=== PATIENT | female | born 1945 | race Caucasian/White ===

== ENCOUNTER 2019-11-18 22:44 | Observation (INO) | payer OTHER ==
[2019-11-18] MEDS ORDERED: SODIUM CHLORIDE 0.9% 500 ML INFUS.BAG IV ONE (23:27)
[2019-11-18] MEDS ORDERED: ACETAMINOPHEN 1000 MG/100 ML VIAL (NON FORMULARY) IVPB ONE (23:58)
--- NOTE | 2019-11-19 00:31 | PDOC ---
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 She did not take anything to relieve the pain. She also states that she has generalized weakness. Pt reports that she has had similar episodes in the past during her CVA, therefore family was concerned and brought her in. She usually follow up wit her doctors at [facility]. Denies f/c/n/v/d,sob,abdominal pain, changes in vision, numbness or tingling. 11/19/19 00:26 Associated Symptoms: reports: denies symptoms, chest pain, headaches, malaise. denies: diaphoresis, nausea/vomiting, rash, shortness of breath Past History - Travel Traveled outside of the country in the last 30 days: No Close contact w/someone who was outside of country & ill: No - Past Medical History Allergies/Adverse Reactions: Allergies Allergy/AdvReac Type Severity Reaction Status Date / Time aspirin Allergy Verified 11/18/19 23:43 Penicillins Allergy Verified 11/18/19 23:43 CVA: Yes (2018 CVA right sided weakness) COPD: No Diabetes: Yes HTN: Yes Hypercholesterolemia: Yes Seizures: Yes - Surgical History Cholecystectomy: Yes - Immunization History Immunization Up to Date: Yes - Psycho Social/Smoking Cessation Hx Smoking History: Never smoked Have you smoked in the past 12 months: No Information on smoking cessation initiated: No Hx Alcohol Use: No Drug/Substance Use Hx: No Review of Systems - Review of Systems Able to Perform ROS?: Yes Is the patient limited Burmese proficient: No Constitutional: Yes: Symptoms Reported, Weakness, Weight Stable. No: Chills, Fever, Loss of Appetite HEENTM: Yes: Symptoms Reported. No: Blurred Vision, Throat Pain Respiratory: Yes: Symptoms reported. No: Cough, Shortness of Breath, Wheezing, Productive cough Cardiac (ROS): Yes: Symptoms Reported, Chest Tightness. No: Chest Pain ( squeezing sensation ) ABD/GI: Yes: Symptoms Reported. No: Constipated, Nausea, Vomiting : Yes: Symptoms Reported. No: Burning, Dysuria Musculoskeletal: Yes: Symptoms Reported, Neck Pain Neurological: Yes: Symptoms reported, Headache, Weakness. No: Numbness, Paresthesia, Tremors All Other Systems: Reviewed and Negative *Physical Exam - Vital Signs Last Vital Signs Temp Pulse Resp BP Pulse Ox 97.9 F 68 18 151/65 95 11/18/19 23:25 11/18/19 23:25 11/18/19 23:25 11/18/19 23:25 11/18/19 23:25 - Physical Exam General Appearance: Yes: Nourished, Appropriately Dressed HEENT: positive: EOMI, ALESSANDRA, Normal ENT Inspection, Pharynx Normal. negative: Scleral Icterus (L) Neck: positive: Tender (left posterior neck), Trachea midline, Normal Thyroid, Supple Respiratory/Chest: positive: Lungs Clear, Normal Breath Sounds. negative: Crackles, Wheezing Cardiovascular: positive: Regular Rhythm, Regular Rate, S1, S2. negative: Murmur, Gallop/S3, Gallop/S4 Vascular Pulses: Dorsalis-Pedis (R): 2+, Doralis-Pedis (L): 2+ Gastrointestinal/Abdominal: positive: Normal Bowel Sounds, Soft. negative: Guarding, Tenderness Extremity: positive: Normal Capillary Refill, Normal Inspection Neurologic: positive: luggage maker II-XII NML intact (strenght 4/5 on the right UE and 5/ 5 left UE, strength 5/5 right LE and 5/5 left LE, Sensation 4/5 Left UE and LE and Sensation 5/5 right UE and LE), Fully Oriented, Alert, Normal Mood/Affect, Normal Response, Other Deep Tendon Reflexes: Ankle (L): 1+, Ankle (R): 1+, Knee (L): 1+, Knee (R): 1+ ED Treatment Course - LABORATORY CBC & Chemistry Diagram: 11/19/19 00:20 11/19/19 00:20 - RADIOLOGY Radiology Studies Ordered: Category Date Time Status HEAD CT WITHOUT CONTRAST [CT] Stat CT Scan 11/18/19 23:25 Ordered Medical Decision Making - Medical Decision Making 74 y/o F, 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
[2019-11-19 00:39] LABS: BASO % 0.7 % (0-2.0); EOS % 1.2 % (0-4.5); HEMATOCRIT 37.8 % (32.4-45.2); HEMOGLOBIN 12.5 GM/dL (10.7-15.3); MCH 30.8 pg (25.7-33.7); MCHC 33.1 g/dl (32.0-36.0); MEAN CELL VOLUME 92.8 fl (80-96); MEAN PLT VOLUME 10.5 fl (7.5-11.1); MONO % 9.8 % (3.8-10.2); NEUT % 53.3 % (42.8-82.8); PLATELET COUNT 226 K/MM3 (134-434); RBC 4.07 M/mm3 (3.60-5.2); RDW 14.9 % (11.6-15.6); WHITE BLOOD COUNT 6.5 K/mm3 (4.0-10.0)
[2019-11-19] MEDS ORDERED: ACETAMINOPHEN INJECTION 100 ML IVPB ONE (00:47)
--- NOTE | 2019-11-19 00:53 | PDOC ---
Documentation entered by Andrea Macdonald SCRIBE, acting as scribe for Janay Nathan MD. Janay Nathan MD: This documentation has been prepared by the Torres vázquez Daniel, SCRIBE, under my direction and personally reviewed by me in its entirety. I confirm that the documentation accurately reflects all work, treatment, procedures, and medical decision making performed by me. Attending Attestation - Resident Resident Name: Tera Nathan - ED Attending Attestation I have performed the following: I have examined & evaluated the patient, The case was reviewed & discussed with the resident, I agree w/resident's findings & plan, Exceptions are as noted - HPI HPI: 11/18/19 23:50 The patient is a 74 year old female with a past medical history of 2 prior strokes with residual right sided weakness here today for evaluation of bilateral frontal headaches and left neck pain. The patient reports that her bilateral headache that radiates to her neck and left sided neck pain started last night. She also reports associated general weakness and chest tightness. She reports that she hasn't taken any medications for her pain. Patient denies headache, lightheadedness. Denies fever, chills. Denies shortness of breath. Denies nausea, diarrhea, abdominal pain. Allergies: aspirin, penicillins Surgical history: cholecystectomy - Physicial Exam PE: 11/19/19 00:47 Alert and conversant 74-year-old Bulgarian-speaking female with complaint of headache that radiated to her neck She is not taking any medications for the headache since that started last evening Head normocephalic atraumatic eyes surendra eomi Neck supple, patient can turn her head both to the right and left without unusual discomfort, there is no midline cervical vertebral tenderness positive trapezius muscle tenderness lungs cta b/l cvs [id number] abd nontender skin warm and dry neuro pt follows commands,chronic rt sided arm and leg weakness,alert and oriented - Medical Decision Making 11/19/19 02:05 CAT scan shows encephalomalacia but no acute infarcts or bleeds Labs reviewed Patient has stated that she has had some chest tightness then denied it however her first troponin was 0.34 Patient will be admitted to telemetry OBS for trending of her troponin
[2019-11-19 00:58] LABS: ALBUMIN 3.3 g/dl (3.4-5.0); BILIRUBIN,TOTAL 0.4 mg/dL (0.2-1); BLOOD UREA NITROGEN 21.8 mg/dL (7-18); CALCIUM 9.6 mg/dL (8.5-10.1); CREATININE 0.9 mg/dL (0.55-1.3); POTASSIUM 3.7 mmol/L (3.5-5.1); TOT PROT 6.6 g/dl (6.4-8.2)
[2019-11-19 01:07] VITALS: BMI 29.5
--- NOTE | 2019-11-19 02:31 | PN ---
Teaching Attending Note Name of Resident: Natalie Salvador ATTENDING PHYSICIAN STATEMENT I saw and evaluated the patient. I reviewed the resident's note and discussed the case with the resident. I agree with the resident's findings and plan as documented. SUBJECTIVE: Patient is a 74 year old woman with a PMH of Penicillin allergy, Cholecystectomy and CVAx2 - most recent being last year, with residual right sided deficit, who presents to the ER with complaint of frontal headache radiating to the left posterior neck. Pain began last night and has since persisted. She did not take anything to relieve the pain. She also states that she has generalized weakness. Patient reports that she has had similar episodes in the past during her CVA, therefore family was concerned and brought her in. She usually follow up with her doctors at [facility]. Denies fever, chills , nausea, vomiting, SOB, abdominal pain, changes in vision, dysuria, diarrhea, numbness or tingling. No history of tobacco, alcohol or illicit drug use. OBJECTIVE: Alert Vital Signs Period Temp Pulse Resp BP Sys/Pollock Pulse Ox Last 24 Hr 97.9 F 68 18 151/65 95 HEENT: No Jaundice, eye redness or discharge, PERRLA, EOMI. Normocephalic, atraumatic. External ears are normal and hearing is grossly intact. No nasal discharge. Neck: Supple, nontender. No palpable adenopathy or thyromegaly. No JVD Chest: Good effort. Clear to auscultation and percussion. Heart: Regular. No S3, rub or murmur Abdomen: Not distended, soft, nontender and no HSM. No rebound or guarding. Normal bowel sounds. Ext: Peripheral pulses intact. No leg edema. Skin: Warm and dry. No petechiae, rash or ecchymosis. Neuro: Alert. Oriented to person. CN 2-12 grossly intact. Right hemiparesis. Psych: Appropriate mood and affect. Abnormal Lab Results 11/19/19 00:20 BUN 21.8 H Troponin I 0.34 H Albumin 3.3 L ASSESSMENT AND PLAN: 1. Headache/Chest pain - Etiology unclear. Noncontrast head CAT scan shows encephalomalacia but no acute infarcts or bleeds. Flu swab is negative. Troponin is elevated. EKG shows NSR with LVH, T wave inversion in aVL and flattening in V5-6 - no old EKG available for comparison. Will admit to telemetry to rule out ACS, get ECHO, CXR, fasting lipids and consult cardiology. Treat headache with tylenol. Will continue comprehensive care for all of patients comorbid conditions. 2. Hypoalbuminemia - Possibly due to combined effects of malnutrition and inflammation associated with comorbid chronic conditions. Will ensure adequate dietary protein intake and also consult director hair. 3. DVT prophylaxis - Lovenox 40 mg SQ q 24 hours. 4. Advance directives - Full code
--- NOTE | 2019-11-19 03:08 | HP ---
CHIEF COMPLAINT:headache PCP:vanessa eaton HISTORY OF PRESENT ILLNESS: 74 yo F PMH CVA x 2 presents with headache. pt states the headache began last night and is severe and sharp. pt states it radiates down her L neck. she is a poor historian and unable to provide further information. family was not at bedside. ER course was notable for: (1) CT head (2)EKG: NSR, LVH, T wave inversion in aVL and flattening in V5-6 (3)trop 0.34 Recent Travel: unable to obtain PAST MEDICAL HISTORY: CVA x 2 PAST SURGICAL HISTORY: unable to obtain Social History:unable to obtain Allergies aspirin Allergy (Verified 11/18/19 23:43) Penicillins Allergy (Verified 11/18/19 23:43) HOME MEDICATIONS: unable to obtain as pt is altered REVIEW OF SYSTEMS: unable to obtain as pt is altered PHYSICAL EXAMINATION Vital Signs - 24 hr 11/18/19 23:25 Temperature 97.9 F Pulse Rate 68 Respiratory 18 Rate Blood Pressure 151/65 O2 Sat by Pulse 95 Oximetry (%) GENERAL: Awake,oriented to self, in no acute distress. HEAD: Normal with no signs of trauma. EYES: Pupils equal, round and reactive to light, extraocular movements intact. L conjunctival erythema EARS, NOSE, THROAT: oropharynx clear without exudates. Moist mucous membranes. NECK: Normal range of motion, supple without lymphadenopathy LUNGS: Breath sounds equal, clear to auscultation bilaterally.No accessory muscle use. HEART: Regular rate and rhythm, normal S1 and S2 without murmur, rub or gallop. ABDOMEN: Soft, nontender, not distended, normoactive bowel sounds, no guarding, no rebound, no masses. MUSCULOSKELETAL: Normal range of motion at all joints. No bony deformities or tenderness UPPER EXTREMITIES: 2+ pulses, warm, well-perfused. No cyanosis. No clubbing. No peripheral edema. LOWER EXTREMITIES: 2+ pulses, warm, well-perfused. No calf tenderness. No peripheral edema. NEUROLOGICAL: Cranial nerves II-XII intact. SKIN: Warm, dry, normal turgor, no rashes or lesions noted, normal capillary refill. Laboratory Results - last 24 hr Laboratory Last Values WBC 6.5 K/mm3 (4.0-10.0) 11/19/19 00:20 RBC 4.07 M/mm3 (3.60-5.2) 11/19/19 00:20 Hgb 12.5 GM/dL (10.7-15.3) 11/19/19 00:20 Hct 37.8 % (32.4-45.2) 11/19/19 00:20 MCV 92.8 fl (80-96) 11/19/19 00:20 MCH 30.8 pg (25.7-33.7) 11/19/19 00:20 MCHC 33.1 g/dl (32.0-36.0) 11/19/19 00:20 RDW 14.9 % (11.6-15.6) 11/19/19 00:20 Plt Count 226 K/MM3 (134-434) 11/19/19 00:20 MPV 10.5 fl (7.5-11.1) 11/19/19 00:20 Absolute Neuts (auto) 3.5 K/mm3 (1.5-8.0) 11/19/19 00:20 Neutrophils % 53.3 % (42.8-82.8) 11/19/19 00:20 Lymphocytes % 35.0 % (8-40) 11/19/19 00:20 Monocytes % 9.8 % (3.8-10.2) 11/19/19 00:20 Eosinophils % 1.2 % (0-4.5) 11/19/19 00:20 Basophils % 0.7 % (0-2.0) 11/19/19 00:20 Nucleated RBC % 0 % (0-0) 11/19/19 00:20 Sodium 144 mmol/L (136-145) 11/19/19 00:20 Potassium 3.7 mmol/L (3.5-5.1) 11/19/19 00:20 Chloride 107 mmol/L (98-107) 11/19/19 00:20 Carbon Dioxide 26 mmol/L (21-32) 11/19/19 00:20 Anion Gap 10 MMOL/L (8-16) 11/19/19 00:20 BUN 21.8 mg/dL (7-18) H 11/19/19 00:20 Creatinine 0.9 mg/dL (0.55-1.3) 11/19/19 00:20 Est GFR (CKD-EPI)AfAm 73.00 11/19/19 00:20 Est GFR (CKD-EPI)NonAf 62.99 11/19/19 00:20 Random Glucose 90 mg/dL (74-106) 11/19/19 00:20 Calcium 9.6 mg/dL (8.5-10.1) 11/19/19 00:20 Total Bilirubin 0.4 mg/dL (0.2-1) 11/19/19 00:20 AST 16 U/L (15-37) 11/19/19 00:20 ALT 27 U/L (13-61) 11/19/19 00:20 Alkaline Phosphatase 64 U/L (45-117) 11/19/19 00:20 Creatine Kinase 60 U/L (26-192) 11/19/19 00:20 Troponin I 0.32 ng/ml (0.00-0.05) H 11/19/19 04:10 Total Protein 6.6 g/dl (6.4-8.2) 11/19/19 00:20 Albumin 3.3 g/dl (3.4-5.0) L 11/19/19 00:20 Urine Color Yellow 11/19/19 03:30 Urine Appearance Clear 11/19/19 03:30 Urine pH 5.0 (5.0-8.0) 11/19/19 03:30 Ur Specific [place] 1.015 (1.010-1.035) 11/19/19 03:30 Urine Protein Negative (NEGATIVE) 11/19/19 03:30 Urine Glucose (UA) Negative (NEGATIVE) 11/19/19 03:30 Urine Ketones Negative (NEGATIVE) 11/19/19 03:30 Urine Blood Negative (NEGATIVE) 11/19/19 03:30 Urine Nitrite Positive (NEGATIVE) H 11/19/19 03:30 Urine Bilirubin Negative (NEGATIVE) 11/19/19 03:30 Urine Urobilinogen 0.2 mg/dL (0.2-1.0) 11/19/19 03:30 Ur Leukocyte Esterase Trace (NEGATIVE) 11/19/19 03:30 Urine WBC (Auto) 4 /hpf (0-5) 11/19/19 03:30 Urine RBC (Auto) 1 /hpf (0-4) 11/19/19 03:30 Urine Casts (Auto) 1 /lpf (0-8) 11/19/19 03:30 U Epithel Cells (Auto) 1.1 /HPF (0-5/HPF) 11/19/19 03:30 Urine Bacteria (Auto) 1034.2 /hpf (NEGATIVE) 11/19/19 03:30 Influenza A (Rapid) Negative (Negative) 11/18/19 23:30 Influenza B (Rapid) Negative (Negative) 11/18/19 23:30 CT head: Focal cystic encephalomalacia of the left greater than right bifrontal lobes, likely sequela of remote infarction versus injury. Otherwise, there is mild to moderate degree diffuse parenchymal atrophy of the remaining brain with preservation of the bajwa-white differentiation. There is no acute intracranial hemorrhage, mass effect or midline shift. No abnormal intra-axial or extra- axial fluid collection is seen. Mild chronic microvascular ischemic changes involving the supratentorial periventricular deepwhite matter. The ventricles and basilar cisterns are maintained. The bones of the calvarium and imaged skull base demonstrate no acute abnormality. The imaged paranasal sinuses and mastoid air cells : Unremarkable ASSESSMENT/PLAN: 74 yo F PMH of CVA presented with headache. pt is admitted to [facility] for tropinemia Tropinemia -Trop 0.33--> 0.32 - EKG NSR, LVH, T wave inversion in aVL and flattening in V5-6 , rpt EKG unchanged -CXRAY, UA -Cardio recs appreciated -pending Echo, fasting lipid panel Headache -CT findings above -IV tylenol -pt at baseline mental status DVT ppx: Lovenox F/E/N -monitor lytes -NPO for possible cardiac stress/interventions ATTENDING PHYSICIAN STATEMENT I saw and evaluated the patient. I reviewed the resident's note and discussed the case with the resident. I agree with the resident's findings and plan as documented. SUBJECTIVE: OBJECTIVE: ASSESSMENT AND PLAN:
[2019-11-19 04:00] LABS: EPI CELLS 1.1 /HPF (0-5/HPF); HYALINE CASTS 1 /lpf (0-8); URINE APPEARANCE CLEAR; URINE BACTERIA 1034.2 /hpf (NEGATIVE); URINE BILIRUBIN NEGATIVE (NEGATIVE); URINE COLOR YELLOW; URINE GLUCOSE (UA) NEGATIVE (NEGATIVE); URINE KETONE NEGATIVE (NEGATIVE); URINE LEUK ESTERASE TRACE (NEGATIVE); URINE NITRITE POSITIVE (NEGATIVE); URINE PROTEIN NEGATIVE (NEGATIVE); URINE RBC 1 /hpf (0-4); URINE UROBILINOGEN 0.2 mg/dL (0.2-1.0); URINE WBC 4 /hpf (0-5)
[2019-11-19 05:48] LABS: BASO % 0.6 % (0-2.0); EOS % 1.6 % (0-4.5); HEMATOCRIT 35.6 % (32.4-45.2); HEMOGLOBIN 11.9 GM/dL (10.7-15.3); LYMPH % 36.7 % (8-40); MCH 31.1 pg (25.7-33.7); MCHC 33.6 g/dl (32.0-36.0); MEAN CELL VOLUME 92.5 fl (80-96); MEAN PLT VOLUME 9.9 fl (7.5-11.1); MONO % 9.1 % (3.8-10.2); PLATELET COUNT 211 K/MM3 (134-434); RBC 3.84 M/mm3 (3.60-5.2); WHITE BLOOD COUNT 6.5 K/mm3 (4.0-10.0)
[2019-11-19 06:17] LABS: ALBUMIN 3.1 g/dl (3.4-5.0); BILIRUBIN,TOTAL 0.2 mg/dL (0.2-1); BLOOD UREA NITROGEN 17.5 mg/dL (7-18); CALCIUM 8.6 mg/dL (8.5-10.1); CREATININE 0.7 mg/dL (0.55-1.3); MAGNESIUM 1.4 mg/dL (1.8-2.4); PHOSPHOROUS 3.6 mg/dL (2.5-4.9); POTASSIUM 3.2 mmol/L (3.5-5.1)
[2019-11-19] MEDS ORDERED: MAGNESIUM OXIDE 400 MG TABLET (FP) ONE (08:25)
[2019-11-19] MEDS ORDERED: KCL 10 MEQ IVPB 10 MEQ/100 ML INFUS.BAG IVPB ONE (08:26)
[2019-11-19] MEDS ORDERED: POTASSIUM CHLORIDE ORAL LIQUID 20 MEQ/15 ML ONE (08:26)
[2019-11-19] MEDS ORDERED: KCL 10 MEQ IVPB 10 MEQ/100 ML INFUS.BAG IVPB SCH (08:30)
[2019-11-19] MEDS ORDERED: POTASSIUM CHLORIDE ORAL LIQUID 20 MEQ/15 ML PO ONE (09:00)
[2019-11-19] MEDS ORDERED: MAGNESIUM OXIDE 400 MG TABLET (FP) PO ONE (09:00)
--- NOTE | 2019-11-19 09:48 | PN ---
Teaching Attending Note Name of Resident: Denzel Shepard ATTENDING PHYSICIAN STATEMENT I saw and evaluated the patient. I reviewed the resident's note and discussed the case with the resident. I agree with the resident's findings and plan as documented. SUBJECTIVE: Patient is comfortable with no acute distress. lying in bed comfortably. OBJECTIVE: Vital Signs Temperature 97.9 F 11/19/19 04:00 Pulse Rate 66 11/19/19 04:00 Respiratory Rate 16 11/19/19 04:00 Blood Pressure 144/58 L 11/19/19 04:00 O2 Sat by Pulse Oximetry (%) 93 L 11/19/19 04:00 GENERAL: The patient is awake, alert, and fully oriented, in no acute distress. HEAD: Normal with no signs of trauma. EYES: PERRL, extraocular movements intact, sclera anicteric, conjunctiva clear. ENT: Ears normal, oropharynx clear without exudates, moist mucous membranes. NECK: Trachea midline, full range of motion, supple. LUNGS: Breath sounds equal, clear to auscultation bilaterally, no wheezes, no crackles, no accessory muscle use. HEART: Regular rate and rhythm, S1, S2 without murmur, rub or gallop. ABDOMEN: Soft, nontender, nondistended, normoactive bowel sounds, no guarding, no rebound, no hepatosplenomegaly, no masses. EXTREMITIES: 2+ pulses, warm, well-perfused, no edema. NEUROLOGICAL: Cranial nerves II through XII grossly intact. Normal speech, gait not observed. PSYCH: Normal mood, normal affect. SKIN: Warm, dry, normal turgor, no rashes or lesions noted CBCD WBC 6.5 K/mm3 (4.0-10.0) 11/19/19 05:30 RBC 3.84 M/mm3 (3.60-5.2) 11/19/19 05:30 Hgb 11.9 GM/dL (10.7-15.3) 11/19/19 05:30 Hct 35.6 % (32.4-45.2) 11/19/19 05:30 MCV 92.5 fl (80-96) 11/19/19 05:30 MCHC 33.6 g/dl (32.0-36.0) 11/19/19 05:30 RDW 15.0 % (11.6-15.6) 11/19/19 05:30 Plt Count 211 K/MM3 (134-434) 11/19/19 05:30 MPV 9.9 fl (7.5-11.1) 11/19/19 05:30 CMP Sodium 141 mmol/L (136-145) 11/19/19 05:30 Potassium 3.2 mmol/L (3.5-5.1) L 11/19/19 05:30 Chloride 108 mmol/L (98-107) H 11/19/19 05:30 Carbon Dioxide 25 mmol/L (21-32) 11/19/19 05:30 Anion Gap 9 MMOL/L (8-16) 11/19/19 05:30 BUN 17.5 mg/dL (7-18) 11/19/19 05:30 Creatinine 0.7 mg/dL (0.55-1.3) 11/19/19 05:30 Random Glucose 93 mg/dL (74-106) 11/19/19 05:30 Calcium 8.6 mg/dL (8.5-10.1) 11/19/19 05:30 Total Bilirubin 0.2 mg/dL (0.2-1) 11/19/19 05:30 AST 14 U/L (15-37) L 11/19/19 05:30 ALT 26 U/L (13-61) 11/19/19 05:30 Alkaline Phosphatase 57 U/L (45-117) 11/19/19 05:30 Total Protein 6.0 g/dl (6.4-8.2) L 11/19/19 05:30 Albumin 3.1 g/dl (3.4-5.0) L 11/19/19 05:30 CARDIAC ENZYMES Creatine Kinase 48 U/L (26-192) 11/19/19 05:30 Troponin I 0.30 ng/ml (0.00-0.05) H 11/19/19 05:30 Current Medications Generic Name Dose Route Start Last Admin Trade Name Freq PRN Reason Stop Dose Admin Enoxaparin Sodium 30 mg 11/19/19 10:00 Lovenox - SQ DAILY [facility] Home Medications Medication Instructions Recorded Amlodipine Besylate [Norvasc -] 10 mg PO DAILY 11/19/19 Apixaban [Eliquis] 5 mg PO BID 11/19/19 Atorvastatin Ca [Lipitor] 40 mg PO HS 11/19/19 Carvedilol [Coreg -] 25 mg PO BID 11/19/19 Chlorthalidone 25 mg PO DAILY 11/19/19 Colchicine 25 gm PO ONCE 11/19/19 Levetiracetam 750 mg PO BID 11/19/19 Lisinopril [Prinivil -] 40 mg PO DAILY 11/19/19 metFORMIN HCL [Metformin HCl] 850 mg PO BID 11/19/19 Troponin, BNP 11/19/19 11/19/19 11/19/19 00:20 04:10 05:30 Troponin I 0.34 H 0.[address] scan no contrast: ventricular dilatation and moderate to marked periventricular chronic microvascular ischemic disease , encephalomalachia in the left frontal lobe and smaller area in the right frontal lobe. ASSESSMENT AND PLAN: 74 yo F PMH CVA x 2 presents with headache. pt states the headache began last night and is severe and sharp. pt states it radiates down her L neck. she is a poor historian and unable to provide further information. family was not at bedside. #Severe headache: Ct scan reports BL frontal encephalomalacia/chronic infarct; Left larger than right , on Eliquis as per patient has no further eliquis at home , will continue for 2 more weeks till she sees her primary MD. #Tropinemia; Trop 0.33--> 0.32-->0.30 , echo negative for LV dysfunction , will continue Lipitor ,EKG NSR, LVH, T wave inversion in aVL and flattening in V5-6 , rpt EKG unchanged, cardio , can follow up with dr Harris as an outpatient, consult appreciated. as per cardiology's note: elevated trop:indeterminate range, flat trend--not c/ w ACS -ECG x 2 non-ischemic, no evolving or dynamic changes -no ischemia sx's -no indication for ischemia w/u at this time -echo -if no LV dysfunction can go home. #hx of HTN : on Norvasc , chlorthalidone #T2DM on metfromin continue #Hypokalemia will replete to above 4.2 dc patient home
[2019-11-19] MEDS ORDERED: CARVEDILOL 25 MG TABLET (FP) PO SCH (10:00)
[2019-11-19] MEDS ORDERED: APIXABAN 5 MG TABLET PO SCH (10:00)
[2019-11-19] MEDS ORDERED: POTASSIUM CHLORIDE TABS 20 MEQ TABLET.ER (FP) PO SCH (10:00)
[2019-11-19] MEDS ORDERED: PATIENT'S OWN MEDICATION (NON-FORMULARY) (Levetiracetam [Levetiracetam] 750 MG) PO SCH (10:00)
[2019-11-19] MEDS ORDERED: ENOXAPARIN NA (PORCINE) 30 MG/0.3 ML DISP.SYRIN SQ SCH (10:00)
[2019-11-19] MEDS ORDERED: LISINOPRIL 20 MG TABLET (FP) PO SCH (10:00)
[2019-11-19] MEDS ORDERED: amLODIPine BESYLATE 10 MG TABLET (FP) PO SCH (10:00)
--- NOTE | 2019-11-19 10:05 | EKG ---
Test Reason : Blood Pressure : / mmHG Vent. Rate : 067 BPM Atrial Rate : 067 BPM P-R Int : 160 ms QRS Dur : 074 ms QT Int : 430 ms P-R-T Axes : 055 -05 136 degrees QTc Int : 454 ms NORMAL SINUS RHYTHM T WAVE ABNORMALITY, CONSIDER LATERAL ISCHEMIA ABNORMAL ECG WHEN COMPARED WITH ECG OF 19-NOV-2019 00:28, NO SIGNIFICANT CHANGE WAS FOUND Confirmed by KESHA CALDERON MD ([id number]) on 11/19/2019 10:05:32 AM Referred By: Confirmed By:KESHA CALDERON MD
--- NOTE | 2019-11-19 10:06 | EKG ---
Test Reason : Blood Pressure : / mmHG Vent. Rate : 065 BPM Atrial Rate : 065 BPM P-R Int : 164 ms QRS Dur : 072 ms QT Int : 430 ms P-R-T Axes : 059 -08 117 degrees QTc Int : 447 ms NORMAL SINUS RHYTHM MINIMAL VOLTAGE CRITERIA FOR LVH, MAY BE NORMAL VARIANT T WAVE ABNORMALITY, CONSIDER LATERAL ISCHEMIA ABNORMAL ECG NO PREVIOUS ECGS AVAILABLE Confirmed by KESHA CALDERON MD ([id number]) on 11/19/2019 10:06:13 AM Referred By: Confirmed By:KESHA CALDERON MD
--- NOTE | 2019-11-19 10:14 | CON.CARD ---
Consult Consult Specialty:: CV - History of Present Illness Chief Complaint: CASTANEDA History of Present Illness: 74 F here with CASTANEDA. has prior h/o CVA x 2, presented with CASTANEDA then. came for assessment, CT showed encephalomalacia no acute infarct. troponin 0.3 x 3 ? h/o CHF--home med regimen suggestive, pt and family uncertain. sees cardio in [facility] known "arrhythmia" hx x 10 yrs, on AC (not new) DENIES ANY CHEST DISCOMFORT AT HOME OR HERE. DENIES SOB, ORTHOPNEA no leg swelling no palpit PMH: uncertain, no home med list obtained - Alcohol/Substance Use Hx Alcohol Use: No - Smoking History Smoking history: Never smoked Have you smoked in the past 12 months: No Home Medications - Allergies Allergies/Adverse Reactions: Allergies Allergy/AdvReac Type Severity Reaction Status Date / Time aspirin Allergy Verified 11/18/19 23:43 Penicillins Allergy Verified 11/18/19 23:43 - Home Medications Home Medications: Ambulatory Orders Amlodipine Besylate [Norvasc -] 10 mg PO DAILY 11/19/19 Apixaban [Eliquis] 5 mg PO BID 11/19/19 Atorvastatin Ca [Lipitor] 40 mg PO HS 11/19/19 Carvedilol [Coreg -] 25 mg PO BID 11/19/19 Chlorthalidone 25 mg PO DAILY 11/19/19 Colchicine 25 gm PO ONCE 11/19/19 Levetiracetam 750 mg PO BID 11/19/19 Lisinopril [Prinivil -] 40 mg PO DAILY 11/19/19 metFORMIN HCL [Metformin HCl] 850 mg PO BID 11/19/19 Family Medical History Family History: Denies (no known cmp) Review of Systems - Review of Systems Constitutional: denies: Chills, Fever Eyes: denies: Eye Pain HENT: denies: Nasal Congestion Neck: denies: Stiffness Cardiovascular: denies: Palpitations Respiratory: denies: Orthopnea, PND Gastrointestinal: denies: Diarrhea, Rectal Bleeding Genitourinary: denies: Burning, Hematuria Musculoskeletal: denies: Muscle Pain Integumentary: denies: Rash Neurological: denies: Numbness, Seizure, Syncope Endocrine: denies: Excessive Sweating Hematology/Lymphatic: denies: Excessive Bleeding Vital Signs: Vital Signs Temperature 97.9 F 11/19/19 04:00 Pulse Rate 66 11/19/19 04:00 Respiratory Rate 16 11/19/19 04:00 Blood Pressure 144/58 L 11/19/19 04:00 O2 Sat by Pulse Oximetry (%) 93 L 11/19/19 04:00 Constitutional: Yes: Well Nourished, No Distress Eyes: No: Sclera Icterus HENT: No: Nasal Congestion Neck: No: Decreased ROM Respiratory: Yes: CTA Bilaterally. No: Accessory Muscle Use, Rales, Wheezes Gastrointestinal: Yes: Normal Bowel Sounds. No: Distention, Hepatomegaly, Palpable Mass, Tenderness Cardiovascular: Yes: Regular Rate and Rhythm JVD: No Carotid Bruit: No PMI: Non-Displaced Heart Sounds: Yes: S1, S2. No: Gallop Murmur: No: Systolic Murmur, Diastolic Murmur Musculoskeletal: Yes: Other (No kyphosis) Extremities: No: Cool, Cyanosis Edema: No Peripheral Pulses: 2+ Left Carotid, 2+ Right Carotid, 2+ Left Doralis Pedis, 2+ Right Dorsalis Pedis Integumentary: No: Jaundice Neurological: Yes: Alert, Oriented (x3) Psychiatric: No: Agitated - Other Data Labs, Other Data: CBC, BMP 11/19/19 05:30 11/19/19 05:30 Troponin, BNP 11/19/19 11/19/19 11/19/19 00:20 04:10 05:30 Troponin I 0.34 H 0.32 H 0.30 H Troponin, BNP 11/19/19 11/19/19 11/19/19 00:20 04:10 05:30 Troponin I 0.34 H 0.32 H 0.30 H Assessment/Plan ECG #1: NSR, no LVH, no path q's, nonsp ST-Ts. no old #2: no change CXR: weak inspiration with central crowding, no effusions CT head: bilateral frontal lobe encephalomalacia, no acute pathology headache, h/o CVA's (bilateral frontal lobes: -CASTANEDA w/u per primary -on AC for afib (cont home eliquis dose) elevated trop: -indeterminate range, flat trend--not c/w ACS -ECG x 2 non-ischemic, no evolving or dynamic changes -no ischemia sx's -no indication for ischemia w/u at this time -echo pending--if LV dysfunction will do pharm MPI as pt denies recent ischemia w/u HTN: -bp mildly elevated here, improving -cont carvedilol, lisinopril, amlodipine as doing hypoK, hypoMag -replete lytes prn (ordered) h/o Afib: -provides h/o "arrhythmia" treated with AC for several yrs -in sinus here -cont home carvedilol, eliquis
[2019-11-19] MEDS ORDERED: INSULIN SLIDING SCALE (NOVOLOG) 1 VIAL SQ SCH (11:00)
[2019-11-19] MEDS ORDERED: PT OWN MED DRAWER 7, Y5N ONE (11:26)
--- NOTE | 2019-11-19 15:48 | ECHO ---
Version: 1 Name: COREY MCCORMICK Exam: Adult Echocardiogram Study Date: 11/19/2019, 2:45 PM Age: 74 Years MMode/2D Measurements & Calculations IVSd: 1.22 cm LVIDs: 2.42 cm LVIDd: 3.4 cm LVPWd: 0.94 cm ACS: 1.15 cm LA dimension: 3.3 cm LVOT diam: 1.61 cm Doppler Measurements & Calculations MV E max prince: 98.7 cm/sec Med E/e': 22.0 MV A max prince: 118.0 cm/sec Med Peak E' Prince: 4.5 cm/sec MV E/A: 0.84 Lat E/e': 12.7 Lat Peak E' Prince: 7.8 cm/sec Ao max P.6 mmHg Ao mean P.4 mmHg Ao V2 max: 203.6 cm/sec AI P1/2t: 606.4 msec PI end-d prince: 176.5 cm/sec TR max prince: 247.5 cm/sec TR max P.7 mmHg Left Ventricle The left ventricle is normal in size. Left ventricular systolic function is normal. Ejection Fractio n = 60- 65%. LV diastology reveals impaired relaxation with elevated filling pressure. No regional wall laney on abnormalities noted. Right Ventricle The right ventricle is normal size. The right ventricular systolic function is normal. RV systolic T DI is 12 cm/s. Atria The left atrial size is normal. Right atrial size is normal. Mitral Valve The mitral valve leaflets appear normal. There is no evidence of stenosis, fluttering, or prolapse. There is mild mitral regurgitation. Tricuspid Valve The tricuspid valve is normal. There is mild tricuspid regurgitation. Aortic Valve There is moderate aortic sclerosis.;. Mild to moderate aortic regurgitation. Pulmonic Valve The pulmonic valve is not well visualized. Mild pulmonic valvular regurgitation. Great Vessels The aortic root is normal size. Pericardium/Pleura There is no pericardial effusion. Summary Statements The left ventricle is normal in size. Left ventricular systolic function is normal. No regional wall motion abnormalities noted. Ejection Fraction = 60-65%. LV diastology reveals impaired relaxation with elevated filling pressure The right ventricular systolic function is normal. The left atrial size is normal. Right atrial size is normal. There is mild mitral regurgitation. There is mild tricuspid regurgitation. There is moderate aortic sclerosis.; Mild to moderate aortic regurgitation. Mild pulmonic valvular regurgitation. There is no pericardial effusion. Nicho Burris MD 11/19/2019, 3:47 PM Ordering Physician: Natalie Salvador Referring Physician: NATALIE SALVADOR Performed By: Charleen Esquivel
[2019-11-19 16:36] VITALS: TEMP 98.1
[2019-11-19 16:37] VITALS: BP 138/59; PULSE 64
[2019-11-19] MEDS ORDERED: POTASSIUM CHLORIDE TABS 20 MEQ TABLET.ER (FP) PO ONE (16:47)
--- NOTE | 2019-11-19 16:49 | DS ---
Physical Exam: SUBJECTIVE: Patient seen and examined at bedside with family. OBJECTIVE: Vital Signs Period Temp Pulse Resp BP Sys/Pollock Pulse Ox Last 24 Hr 97.9 F-98.1 F 64-68 16-20 138-151/58-75 93-98 PHYSICAL EXAM GENERAL: The patient is awake, alert, and fully oriented, in no acute distress. HEAD: Normal with no signs of trauma. EYES: PERRL, extraocular movements intact, sclera anicteric, conjunctiva clear. ENT: Ears normal, nares patent, oropharynx clear without exudates, moist mucous membranes. NECK: Trachea midline, full range of motion, supple. LUNGS: Breath sounds equal, clear to auscultation bilaterally, no wheezes, no crackles, no accessory muscle use. HEART: Regular rate and rhythm, S1, S2 without murmur, rub or gallop. ABDOMEN: Soft, nontender, nondistended, normoactive bowel sounds, no guarding, no rebound, no hepatosplenomegaly, no masses. EXTREMITIES: 2+ pulses, warm, well-perfused, no edema. NEUROLOGICAL: Cranial nerves II through XII grossly intact. Normal speech, gait not observed. PSYCH: Normal mood, normal affect. SKIN: Warm, dry, normal turgor, no rashes or lesions noted. LABS Laboratory Results - last 24 hr 11/18/19 11/19/19 11/19/19 23:30 00:20 00:20 WBC 6.5 RBC 4.07 Hgb 12.5 Hct 37.8 MCV 92.8 MCH 30.8 MCHC 33.1 RDW 14.9 Plt Count 226 MPV 10.5 Absolute Neuts (auto) 3.5 Neutrophils % 53.3 Lymphocytes % 35.0 Monocytes % 9.8 Eosinophils % 1.2 Basophils % 0.7 Nucleated RBC % 0 Sodium 144 Potassium 3.7 Chloride 107 Carbon Dioxide 26 Anion Gap 10 BUN 21.8 H Creatinine 0.9 Est GFR (CKD-EPI)AfAm 73.00 Est GFR (CKD-EPI)NonAf 62.99 POC Glucometer Random Glucose 90 Calcium 9.6 Phosphorus Magnesium Total Bilirubin 0.4 AST 16 ALT 27 Alkaline Phosphatase 64 Creatine Kinase 60 Troponin I 0.34 H Total Protein 6.6 Albumin 3.3 L Urine Color Urine Appearance Urine pH Ur Specific [place] Urine Protein Urine Glucose (UA) Urine Ketones Urine Blood Urine Nitrite Urine Bilirubin Urine Urobilinogen Ur Leukocyte Esterase Urine WBC (Auto) Urine RBC (Auto) Urine Casts (Auto) U Epithel Cells (Auto) Urine Bacteria (Auto) Influenza A (Rapid) Negative Influenza B (Rapid) Negative 11/19/19 11/19/19 11/19/19 03:30 04:10 05:30 WBC 6.5 RBC 3.84 Hgb 11.9 Hct 35.6 MCV 92.5 MCH 31.1 MCHC 33.6 RDW 15.0 Plt Count 211 MPV 9.9 Absolute Neuts (auto) 3.4 Neutrophils % 52.0 Lymphocytes % 36.7 Monocytes % 9.1 Eosinophils % 1.6 Basophils % 0.6 Nucleated RBC % 0 Sodium Potassium Chloride Carbon Dioxide Anion Gap BUN Creatinine Est GFR (CKD-EPI)AfAm Est GFR (CKD-EPI)NonAf POC Glucometer Random Glucose Calcium Phosphorus Magnesium Total Bilirubin AST ALT Alkaline Phosphatase Creatine Kinase Troponin I 0.32 H Total Protein Albumin Urine Color Yellow Urine Appearance Clear Urine pH 5.0 Ur Specific [place] 1.015 Urine Protein Negative Urine Glucose (UA) Negative Urine Ketones Negative Urine Blood Negative Urine Nitrite Positive H Urine Bilirubin Negative Urine Urobilinogen 0.2 Ur Leukocyte Esterase Trace Urine WBC (Auto) 4 Urine RBC (Auto) 1 Urine Casts (Auto) 1 U Epithel Cells (Auto) 1.1 Urine Bacteria (Auto) 1034.2 Influenza A (Rapid) Influenza B (Rapid) 11/19/19 11/19/19 11/19/19 05:30 05:30 11:56 WBC RBC Hgb Hct MCV MCH MCHC RDW Plt Count MPV Absolute Neuts (auto) Neutrophils % Lymphocytes % Monocytes % Eosinophils % Basophils % Nucleated RBC % Sodium 141 Potassium 3.2 L Chloride 108 H Carbon Dioxide 25 Anion Gap 9 BUN 17.5 Creatinine 0.7 Est GFR (CKD-EPI)AfAm 98.92 Est GFR (CKD-EPI)NonAf 85.35 POC Glucometer 113 Random Glucose 93 Calcium 8.6 Phosphorus 3.6 Magnesium 1.4 L Total Bilirubin 0.2 AST 14 L ALT 26 Alkaline Phosphatase 57 Creatine Kinase 48 Troponin I 0.30 H Total Protein 6.0 L Albumin 3.1 L Urine Color Urine Appearance Urine pH Ur Specific [place] Urine Protein Urine Glucose (UA) Urine Ketones Urine Blood Urine Nitrite Urine Bilirubin Urine Urobilinogen Ur Leukocyte Esterase Urine WBC (Auto) Urine RBC (Auto) Urine Casts (Auto) U Epithel Cells (Auto) Urine Bacteria (Auto) Influenza A (Rapid) Influenza B (Rapid) HOSPITAL COURSE: Date of Admission:11/19/19 Date of Discharge: 11/19/19 Discharge Summary Problems reviewed: Yes Reason For Visit: SENSATION OF CHEST TIGHTNESS Condition: Improved - Instructions Diet, Activity, Other Instructions: YOUR VISIT You came to the hospital because you were having a headache. You were admitted to the hospital for further care and evaluation. Please be sure to measure your blood pressure every day and record it in a notebook for your primary care provider. Further testing were done; Echo was done was negative. Your Potassium was low, you were given potassium supplement in the hospital. please have your potassium level checked in your primary care office. MEDICATIONS Please continue to take your medications as prescribed. There are no new changes to your regimen. ADDITIONAL CARE Please make an appointment to see your primary care provider, MELYSSA Dowling, 1 week from today. If you prefer, you can be seen at the [facility] residents clinic located at [address] [place] [address]. Please call to make an appointment. If you would like to continue seeing Dr. Denzel Shepard, please ask for a Tuesday morning appointment. Please make an appointment to see a storeroom supervisor in 1 week. A referral has to Dr. Harris has been provided. ADDITIONAL INFORMATION Please call [phone] or come directly to the emergency department if you experience unusual headache, vision change, shortness of breath, chest pain, numbness, tingling, loss of alertness/awareness, loss of function, unusual bleeding or any alarming symptoms. [place]: [facility] [facility] [place]Provider Group] - 1 Week (please follow up with Dr.Julian Sanchez) Chip Harris MD [Staff Physician] - Natalie Dowling NP [Primary Care Provider] - Disposition: HOME - Home Medications Comprehensive Discharge Medication List: Ambulatory Orders Amlodipine Besylate [Norvasc -] 10 mg PO DAILY 11/19/19 Apixaban [Eliquis] 5 mg PO BID 11/19/19 Atorvastatin Ca [Lipitor] 40 mg PO HS 11/19/19 Carvedilol [Coreg -] 25 mg PO BID 11/19/19 Chlorthalidone 25 mg PO DAILY 11/19/19 Colchicine 25 gm PO ONCE 11/19/19 Levetiracetam 750 mg PO BID 11/19/19 Lisinopril [Prinivil -] 40 mg PO DAILY 11/19/19 metFORMIN HCL [Metformin HCl] 850 mg PO BID 11/19/19 ATTENDING PHYSICIAN STATEMENT I saw and evaluated the patient. I reviewed the resident's note and discussed the case with the resident. I agree with the resident's findings and plan as documented. SUBJECTIVE: OBJECTIVE: ASSESSMENT AND PLAN:
[2019-11-19] MEDS ORDERED: ATORVASTATIN CA 40 MG TABLET (FP) PO SCH (22:00)
[2019-11-20] MEDS ORDERED: POTASSIUM CHLORIDE TABS 20 MEQ TABLET.ER (FP) PO SCH (10:00)
== END 2019-11-19 19:33 | disposition home or self-care (01) ==
LOC: JER 22:44 → JERBED 11-19 02:07 → INTOOBSV 11-19 02:07 → J2W 11-19 15:21
PROVIDERS: ADMIT Internal Medicine; ATTEND Internal Medicine
PROC: 3E033NZ Introduction of Analgesics, Hypnotics, Sedatives into Peripheral Vein, Percutaneous Approach (ICD-10-PCS; principal; 2019-11-19)
PROC: 3E0337Z Introduction of Electrolytic and Water Balance Substance into Peripheral Vein, Percutaneous Approach (ICD-10-PCS; 2019-11-19)
DX: R07.89 Other chest pain (principal); R51 Headache; I10 Essential (primary) hypertension; E78.5 Hyperlipidemia, unspecified; E11.9 Type 2 diabetes mellitus without complications; E87.6 Hypokalemia; I48.91 Unspecified atrial fibrillation; I69.351 Hemiplegia and hemiparesis following cerebral infarction affecting right dominant side; R77.0 Abnormality of albumin; R77.8 Other specified abnormalities of plasma proteins; Z88.0 Allergy status to penicillin; Z88.6 Allergy status to analgesic agent; Z79.01 Long term (current) use of anticoagulants; Z79.84 Long term (current) use of oral hypoglycemic drugs
CPT/HCPCS: 36415; 70450-TC; 71045-TC-FY; 80053; 81003; 82550; 82962; 83735; 84100; 84484; 85025; 87086; 87186; 87804; 93005; 93010; 93306-TC; 96374; 99285-25; G0378; J0131